=== PATIENT | female | born 1935 | race Caucasian/White ===

== ENCOUNTER 2016-06-03 11:04 | Inpatient (IN) | payer OTHER, MEDICARE ==
[~2016-06-03] VITALS: Ht 157.5 cm; Wt 40.4 kg
[~2016-06-03 11:04] MED LIST: ASPIRIN EC325 MG PO; B-121000 MC2 PO; CENTRUM SILVER1 EAC3 PO; ESCITALOPRAM OX10 MG PO; FAMOTIDINE20 MG PO; IMDUR30 MG PO; LEVAQUIN750 MG PO; LISINOPRIL10 MG PO; LISINOPRIL20 MG PO; LOPRESSOR25 MG PO; PRAVASTATIN SOD40 MG PO; PREDNISONE10 MG PO; ULTRAM50 MG PO; VITAMIN D32000 UNI1 PO
[2016-06-03 12:07] LABS: BASOPHIL COUNT 0.1 K/uL (0-0.1); EOSINOPHIL (%) 0 % (0-5); HEMATOCRIT 34.8 % (36.0-46.0); LYMPHOCYTE COUNT 0.5 K/uL (1.0-2.8); MCH 31.7 PG (29.0-34.0); MCHC 32.5 G/DL (30.0-36.0); MCV 97.5 FL (83-99); MEAN PLAT.VOLUME 8.8 uM^3 (9.5-12.4); MONOCYTE (%) 7.2 % (3-12); MONOCYTE COUNT 1.5 K/uL (0-0.8); NEUTROPHIL (%) 88.8 % (45-76); NEUTROPHIL COUNT 18.5 K/uL (1.8-6.4); PLATELET COUNT 336 K/uL (156-360); RBC DIS.WIDTH-CV 15.2 % (11.8-14.6); RBC DIS.WIDTH-SD 51.6 % (39-53); RED BLOOD COUNT 3.57 M/uL (3.80-5.20); WHITE BLOOD COUNT 20.9 K/uL (4.1-10.2)
[2016-06-03 12:12] LABS: CHLORIDE 91 mEq/L (99-109); POTASSIUM 3.1 mEq/L (3.7-5.4)
[2016-06-03 12:14] LABS: GLUCOSE 200 mg/dL (70-99)
[2016-06-03 12:15] LABS: ANION GAP 15 MEQ/L (2-14); SODIUM 139 mEq/L (136-147)
[2016-06-03 12:18] LABS: GFR ESTIMATE (CALCULATED) > 59 mL/min/
[2016-06-03 12:19] LABS: UREA NITROGEN (BUN) 35 mg/dL (9-23)
[2016-06-03 12:24] LABS: TROP-I INTERPRETATION NEGATIVE; TROPONIN-I 0.05 ng/mL (0.0-0.30)
[2016-06-03] MEDS ORDERED: PRAVACHOL20 MG PO (13:40)
[2016-06-03] MEDS ORDERED: ISOSORBIDE MONO30 MG PO (13:43)
[2016-06-03] MEDS ORDERED: METOPROLOL TART25 MG PO (13:45)
[2016-06-03] MEDS ORDERED: LISINOPRIL10 MG PO (13:47)
[2016-06-03] MEDS ORDERED: FAMOTIDINE20 MG PO (13:48)
[2016-06-03] MEDS ORDERED: LEVOFLOXACIN500 MG PO (13:49)
[2016-06-03] MEDS ORDERED: ACIDOPHILUS1 EAC4 PO (13:50)
[2016-06-03] MEDS ORDERED: DUONEB 2.5-0.5 M3 ML AEROSOL (13:52)
[2016-06-03] MEDS ORDERED: POTASSIUM CHLO10 ME4 PO (13:53)
[2016-06-03] MEDS ORDERED: COUGH CONT100 MG/5 M PO (13:55)
[2016-06-03] MEDS ORDERED: MILK OF MAGN PO (13:57)
[2016-06-03] MEDS ORDERED: DULCOLAX10 MG PR (13:58)
[2016-06-03] MEDS ORDERED: FLEET ENEMA-AD118 ML PR (13:59)
[2016-06-03] MEDS ORDERED: ACETAMINOPHEN325 M1 PO (14:00)
[2016-06-03] MEDS ORDERED: ESCITALOPRAM OXA5 MG PO (14:01)
[2016-06-03 16:00] VITALS: BP 115/67
[2016-06-03 17:43] LABS: POINT-OF-CARE METER ID UU14149398; POINT-OF-CARE USER ID 606021404
[2016-06-03 20:00] VITALS: BP 164/86
[2016-06-03 23:40] LABS: POINT-OF-CARE METER ID UU14149396
[2016-06-04] VITALS: BP 164/81
[2016-06-04 03:35] VITALS: BP 162/78
[2016-06-04 08:33] VITALS: BP 192/93
[2016-06-04 08:33] LABS: POINT-OF-CARE METER ID UU14149398
[2016-06-04 12:06] LABS: POINT-OF-CARE METER ID UU14149398
[2016-06-04 12:11] VITALS: BP 164/80
[2016-06-04 16:11] LABS: POINT-OF-CARE METER ID UU14149398
[2016-06-04 16:15] VITALS: BP 134/87; BP 156/82
[2016-06-04 16:52] LABS: HEMATOCRIT 33.3 % (36.0-46.0); MCH 30.4 PG (29.0-34.0); MCHC 31.5 G/DL (30.0-36.0); MCV 96.5 FL (83-99); MEAN PLAT.VOLUME 9.2 uM^3 (9.5-12.4); PLATELET COUNT 264 K/uL (156-360); RBC DIS.WIDTH-CV 15.8 % (11.8-14.6); RBC DIS.WIDTH-SD 54.9 % (39-53); RED BLOOD COUNT 3.45 M/uL (3.80-5.20); WHITE BLOOD COUNT 20.5 K/uL (4.1-10.2)
[2016-06-04 18:55] LABS: ALKALINE PHOSPHATASE 134 IU/L (3-129); ANION GAP 14 MEQ/L (2-14); CHLORIDE 99 MEQ/L (99-109); GFR ESTIMATE (CALCULATED) > 59 mL/min/; GLUCOSE 123 mg/dL (70-99); SAMPLE HEMOLYSIS CHECK 0; SAMPLE ICTERIC CHECK 0; SAMPLE LIPEMIA CHECK 0; SODIUM 141 MEQ/L (136-147); TOTAL BILIRUBIN 0.6 MG/DL (0.0-1.0); UREA NITROGEN (BUN) 25 mg/dL (9-23)
[2016-06-04 20:00] VITALS: BP 166/99
[2016-06-04 21:53] LABS: POINT-OF-CARE METER ID UU14149396
[2016-06-05] VITALS: BP 159/81
[2016-06-05 06:45] LABS: BASOPHIL COUNT 0.1 K/uL (0-0.1); EOSINOPHIL (%) 0 % (0-5); HEMATOCRIT 34.4 % (36.0-46.0); IMMATURE GRANULOCYTE (%) 1.7 % (0.0-0.7); IMMATURE GRANULOCYTE COUNT 0.3 K/uL; LYMPHOCYTE COUNT 0.9 K/uL (1.0-2.8); MCH 31.5 PG (29.0-34.0); MCHC 32.6 G/DL (30.0-36.0); MCV 96.9 FL (83-99); MEAN PLAT.VOLUME 9.4 uM^3 (9.5-12.4); MONOCYTE (%) 6.2 % (3-12); MONOCYTE COUNT 1.3 K/uL (0-0.8); NEUTROPHIL (%) 87.5 % (45-76); NEUTROPHIL COUNT 17.9 K/uL (1.8-6.4); PLATELET COUNT 282 K/uL (156-360); RBC DIS.WIDTH-CV 15.8 % (11.8-14.6); RBC DIS.WIDTH-SD 55.5 % (39-53); RED BLOOD COUNT 3.55 M/uL (3.80-5.20); WHITE BLOOD COUNT 20.5 K/uL (4.1-10.2)
[2016-06-05 07:09] LABS: ANION GAP 13 MEQ/L (2-14); CHLORIDE 98 MEQ/L (99-109); GFR ESTIMATE (CALCULATED) > 59 mL/min/; POTASSIUM 3.7 MEQ/L (3.7-5.4); SAMPLE HEMOLYSIS CHECK 0; SAMPLE ICTERIC CHECK 0; SAMPLE LIPEMIA CHECK 0; SODIUM 141 MEQ/L (136-147); UREA NITROGEN (BUN) 23 mg/dL (9-23)
[2016-06-05 07:11] LABS: GLUCOSE 218 mg/dL (70-99)
[2016-06-05 07:39] LABS: POINT-OF-CARE METER ID UU14149396
[2016-06-05 08:00] VITALS: BP 141/84
[2016-06-05 11:29] VITALS: BP 162/81
[2016-06-05 12:00] LABS: POINT-OF-CARE METER ID UU14149396
[2016-06-05 15:31] VITALS: BP 183/77
[2016-06-05 17:10] LABS: POINT-OF-CARE METER ID UU14149396
[2016-06-05 21:19] VITALS: BP 136/74
[2016-06-05 22:24] LABS: POINT-OF-CARE METER ID UU14149398
[2016-06-06 00:15] VITALS: BP 128/68
[2016-06-06 04:24] VITALS: BP 122/68
[2016-06-06 08:18] LABS: POINT-OF-CARE METER ID UU13113807
[2016-06-06 08:20] VITALS: BP 164/106
[2016-06-06 11:47] LABS: POINT-OF-CARE METER ID UU14149398
[2016-06-06 11:52] VITALS: BP 152/98
[2016-06-06 15:11] VITALS: BP 150/90
[2016-06-06 16:59] LABS: POINT-OF-CARE METER ID UU13113807
[2016-06-06 19:35] VITALS: BP 166/82
[2016-06-06 22:44] LABS: POINT-OF-CARE METER ID UU13113807
[2016-06-07 00:25] VITALS: BP 146/99
[2016-06-07 04:15] VITALS: BP 155/74
[2016-06-07 07:30] LABS: MCHC 32.2 G/DL (30.0-36.0); MCV 96.3 FL (83-99); MEAN PLAT.VOLUME 9.6 uM^3 (9.5-12.4); NRBC (%) 0.1 /100 WBC (0-0); PLATELET COUNT 276 K/uL (156-360); RBC DIS.WIDTH-CV 15.6 % (11.8-14.6); RBC DIS.WIDTH-SD 54.2 % (39-53); RED BLOOD COUNT 3.74 M/uL (3.80-5.20); WHITE BLOOD COUNT 19.5 K/uL (4.1-10.2)
[2016-06-07 07:56] LABS: ALKALINE PHOSPHATASE 126 IU/L (3-129); ANION GAP 12 MEQ/L (2-14); CHLORIDE 96 MEQ/L (99-109); GFR ESTIMATE (CALCULATED) > 59 mL/min/; GLUCOSE 160 mg/dL (70-99); SAMPLE HEMOLYSIS CHECK 0; SAMPLE ICTERIC CHECK 0; SAMPLE LIPEMIA CHECK 0; SODIUM 141 MEQ/L (136-147); TOTAL BILIRUBIN 0.7 MG/DL (0.0-1.0); UREA NITROGEN (BUN) 18 mg/dL (9-23)
[2016-06-07 07:58] LABS: POTASSIUM 2.9 MEQ/L (3.7-5.4)
[2016-06-07 08:00] VITALS: BP 141/81
[2016-06-07 08:05] LABS: POINT-OF-CARE METER ID UU14149396
[2016-06-07 08:35] LABS: BASOPHIL COUNT 0.1 K/uL (0-0.1); EOSINOPHIL (%) 0 % (0-5); HEMATOLOGY COMMENT 1 SMEAR COMPATIBLE; IMMATURE GRANULOCYTE (%) 2.1 % (0.0-0.7); IMMATURE GRANULOCYTE COUNT 0.4 K/uL; MONOCYTE (%) 1.7 % (3-12); MONOCYTE COUNT 0.3 K/uL (0-0.8); NEUTROPHIL (%) 85.4 % (45-76); NEUTROPHIL COUNT 16.7 K/uL (1.8-6.4)
[2016-06-07 11:49] LABS: POINT-OF-CARE METER ID UU14149396
[2016-06-07 12:00] VITALS: BP 124/72
[2016-06-07 16:00] VITALS: BP 103/59
[2016-06-07 16:23] LABS: POINT-OF-CARE METER ID UU14149396
[2016-06-07 20:00] VITALS: BP 124/69
[2016-06-07 21:38] LABS: POINT-OF-CARE METER ID UU14149396
[2016-06-08] VITALS: BP 133/72
[2016-06-08 04:00] VITALS: BP 153/88
[2016-06-08 07:00] VITALS: BP 136/70
[2016-06-08 08:35] LABS: POINT-OF-CARE METER ID UU14149396
[2016-06-08 11:30] LABS: POINT-OF-CARE METER ID UU14149396
[2016-06-08 11:36] VITALS: BP 107/55
[2016-06-08 15:00] VITALS: BP 112/62; BP 128/63
[2016-06-08 16:12] LABS: POINT-OF-CARE METER ID UU14149398
[2016-06-08 19:50] VITALS: BP 136/65
[2016-06-08 22:07] LABS: POINT-OF-CARE METER ID UU14149398
[2016-06-09 00:02] VITALS: BP 132/62
[2016-06-09 04:13] LABS: HEMATOCRIT 31.3 % (36.0-46.0); MCH 30.4 PG (29.0-34.0); MCHC 31.9 G/DL (30.0-36.0); MCV 95.1 FL (83-99); MEAN PLAT.VOLUME 9.5 uM^3 (9.5-12.4); PLATELET COUNT 323 K/uL (156-360); RBC DIS.WIDTH-CV 15.3 % (11.8-14.6); RBC DIS.WIDTH-SD 50.3 % (39-53); RED BLOOD COUNT 3.29 M/uL (3.80-5.20); WHITE BLOOD COUNT 21.3 K/uL (4.1-10.2)
[2016-06-09 04:14] VITALS: BP 145/79
[2016-06-09 04:29] LABS: CHLORIDE 100 mEq/L (99-109); POTASSIUM 3.1 mEq/L (3.7-5.4); SODIUM 139 mEq/L (136-147)
[2016-06-09 04:31] LABS: BASOPHIL COUNT 0.1 K/uL (0-0.1); EOSINOPHIL (%) 0 % (0-5); GLUCOSE 101 mg/dL (70-99); IMMATURE GRANULOCYTE (%) 2.3 % (0.0-0.7); IMMATURE GRANULOCYTE COUNT 4.9 K/uL; LYMPHOCYTE COUNT 1.1 K/uL (1.0-2.8); MONOCYTE (%) 7.9 % (3-12); MONOCYTE COUNT 1.7 K/uL (0-0.8); NEUTROPHIL (%) 84.4 % (45-76)
[2016-06-09 04:32] LABS: ANION GAP 10 MEQ/L (2-14)
[2016-06-09 04:34] LABS: GFR ESTIMATE (CALCULATED) > 59 mL/min/
[2016-06-09 04:35] LABS: UREA NITROGEN (BUN) 22 mg/dL (9-23)
[2016-06-09 04:56] LABS: HEMATOLOGY COMMENT 1 SMEAR COMPATIBLE; USER ID WCD
[2016-06-09 08:00] VITALS: BP 159/86
[2016-06-09 08:36] LABS: POINT-OF-CARE METER ID UU14149398
[2016-06-09 11:12] VITALS: BP 145/73
[2016-06-09 12:22] LABS: POINT-OF-CARE METER ID UU14149396
[2016-06-09 15:39] VITALS: BP 111/59
[2016-06-09 16:29] LABS: POINT-OF-CARE METER ID UU14149398
[2016-06-09 20:00] VITALS: BP 143/82
[2016-06-09 21:36] LABS: POINT-OF-CARE METER ID UU14149398
[2016-06-10] VITALS: BP 140/85
[2016-06-10 04:00] VITALS: BP 164/90
[2016-06-10 06:57] LABS: ANION GAP 10 MEQ/L (2-14); CHLORIDE 101 MEQ/L (99-109); GFR ESTIMATE (CALCULATED) > 59 mL/min/; GLUCOSE 104 mg/dL (70-99); MAGNESIUM 1.7 mg/dl (1.3-2.7); POTASSIUM 4.5 MEQ/L (3.7-5.4); SAMPLE HEMOLYSIS CHECK 0; SAMPLE ICTERIC CHECK 0; SAMPLE LIPEMIA CHECK 0; SODIUM 139 MEQ/L (136-147); UREA NITROGEN (BUN) 19 mg/dL (9-23)
[2016-06-10 08:01] VITALS: BP 157/75
[2016-06-10 08:14] LABS: POINT-OF-CARE METER ID UU14149396
[2016-06-10 11:25] VITALS: BP 98/53
[2016-06-10 11:32] LABS: POINT-OF-CARE METER ID UU14149396
[2016-06-10 15:46] VITALS: BP 122/58
[2016-06-10 17:07] LABS: POINT-OF-CARE METER ID UU14149396
[2016-06-10 19:40] VITALS: BP 145/70
[2016-06-10 21:51] LABS: POINT-OF-CARE METER ID UU14149398
[2016-06-11] VITALS (7 sets, daily range): BP systolic 122–158; BP diastolic 62–98
[2016-06-11 08:58] LABS: POINT-OF-CARE METER ID UU14149396; POINT-OF-CARE USER ID 606021404
[2016-06-11 11:55] LABS: POINT-OF-CARE METER ID UU14149396; POINT-OF-CARE USER ID 606021404
[2016-06-11 17:18] LABS: POINT-OF-CARE METER ID UU14149398; POINT-OF-CARE USER ID 606021404
[2016-06-11 21:21] LABS: POINT-OF-CARE METER ID UU14149398
[2016-06-12 03:15] VITALS: BP 160/70
[2016-06-12 08:08] VITALS: BP 137/60
[2016-06-12 08:58] LABS: POINT-OF-CARE METER ID UU14149398
[2016-06-12 11:47] LABS: POINT-OF-CARE METER ID UU14149396
[2016-06-12 12:33] VITALS: BP 111/71
[2016-06-12 16:21] VITALS: BP 119/75
[2016-06-12 17:04] LABS: POINT-OF-CARE METER ID UU14149396
[2016-06-12 20:00] VITALS: BP 106/58
[2016-06-12 20:47] LABS: POINT-OF-CARE METER ID UU14149398
[2016-06-13] VITALS: BP 130/58
[2016-06-13 04:00] VITALS: BP 123/65
[2016-06-13 06:28] LABS: BASOPHIL COUNT 0.1 K/uL (0-0.1); EOSINOPHIL (%) 0 % (0-5); HEMATOCRIT 37.6 % (36.0-46.0); IMMATURE GRANULOCYTE (%) 1.5 % (0.0-0.7); IMMATURE GRANULOCYTE COUNT 3.4 K/uL; LYMPHOCYTE COUNT 1.2 K/uL (1.0-2.8); MCH 31.1 PG (29.0-34.0); MCHC 32.7 G/DL (30.0-36.0); MCV 94.9 FL (83-99); MEAN PLAT.VOLUME 9.8 uM^3 (9.5-12.4); MONOCYTE (%) 7.9 % (3-12); MONOCYTE COUNT 1.8 K/uL (0-0.8); NEUTROPHIL (%) 85.3 % (45-76); NEUTROPHIL COUNT 19.7 K/uL (1.8-6.4); RBC DIS.WIDTH-CV 15.5 % (11.8-14.6); RBC DIS.WIDTH-SD 51.4 % (39-53)
[2016-06-13 06:30] LABS: RED BLOOD COUNT 3.96 M/uL (3.80-5.20)
[2016-06-13 06:31] LABS: PLATELET COUNT 471 K/uL (156-360)
[2016-06-13 08:07] VITALS: BP 140/68
[2016-06-13 08:18] LABS: POINT-OF-CARE METER ID UU13113807
[2016-06-13 08:32] LABS: ANION GAP 11 MEQ/L (2-14); CHLORIDE 97 MEQ/L (99-109); GFR ESTIMATE (CALCULATED) > 59 mL/min/; GLUCOSE 88 mg/dL (70-99); POTASSIUM 2.8 MEQ/L (3.7-5.4); SAMPLE HEMOLYSIS CHECK 0; SAMPLE ICTERIC CHECK 0; SAMPLE LIPEMIA CHECK 0; SODIUM 141 MEQ/L (136-147); UREA NITROGEN (BUN) 16 mg/dL (9-23)
[2016-06-13 11:05] VITALS: BP 98/50
[2016-06-13 12:23] LABS: POINT-OF-CARE METER ID UU14149398; POINT-OF-CARE USER ID 606021404
[2016-06-13] MEDS ORDERED: CEFDINIR300 MG PO (12:40)
[2016-06-13] MEDS ORDERED: VERAPAMIL HCL120 MG PO (12:41)
[2016-06-13] MEDS ORDERED: PREDNISONE20 MG PO (12:44)
== END 2016-06-13 16:15 | DRG 190 ==
LOC: EME 11:04 → EDOF 14:55 → 4SOUTH 14:55
PROVIDERS: Emergency Medicine; Hospitalist; Internal Medicine
DX: J44.0 Chronic obstructive pulmonary disease with (acute) lower respiratory infection (principal); J18.9 Pneumonia, unspecified organism; J96.20 Acute and chronic respiratory failure, unspecified whether with hypoxia or hypercapnia; E44.0 Moderate protein-calorie malnutrition; R64 Cachexia; J90 Pleural effusion, not elsewhere classified; Z68.1 Body mass index [BMI] 19.9 or less, adult; C41.4 Malignant neoplasm of pelvic bones, sacrum and coccyx; J44.1 Chronic obstructive pulmonary disease with (acute) exacerbation; I10 Essential (primary) hypertension; I25.10 Atherosclerotic heart disease of native coronary artery without angina pectoris; E87.6 Hypokalemia; I27.2 Other secondary pulmonary hypertension; E78.5 Hyperlipidemia, unspecified; F32.9 Major depressive disorder, single episode, unspecified; Z87.891 Personal history of nicotine dependence; Z66 Do not resuscitate; Z51.5 Encounter for palliative care; R33.9 Retention of urine, unspecified; J84.10 Pulmonary fibrosis, unspecified
CPT/HCPCS: 31720; 70450; 71010; 74176; 74230; 80048; 80053; 80202; 81003; 82948; 83605; 83735; 84484; 85025; 85027; 87040; 92526 GN; 92610 GN; 92611 GN; 93005; 94640; 94640 76; 94664; 94760; 94799; 97530 GP; 99202; 99281; 99285; J0456; J0692; J1650; J1815; J2920; J3370; J3486; J7040; J7050; J7512; S0030